=== PATIENT | female | born 1935 | race Caucasian/White ===

== ENCOUNTER 2022-05-13 10:11 | Emergency (ER) | payer MEDICARE, SELFPAY ==
--- NOTE | ~2022-05-13 | CT_ITS ---
EXAMINATION: CT cervical spine wo con DATE: 05/13/2022 11:26 INDICATION: Ground-level fall. TECHNIQUE: Computed tomography (CT) of the cervical spine was performed without intravenous contrast. Automated exposure control and iterative reconstruction technique were employed. Exam dose: 480.08 mGy-cm total exam DLP. COMPARISON: None FINDINGS: There is levoscoliosis of the cervical spine. No fracture or dislocation or locked facet. C1 and C2 are normally aligned and the odontoid process is intact. 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 There is mild to moderate degenerative disease at C3-4 and C4-5. There is minimal anterolisthesis at C4-5. There is severe degenerative disc disease at C5-6 and particularly C6-7 and C7-T1. Moderately severe degenerative disc disease and mild anterolisthesis at T1-2. There is prominent degenerative change of the apophyseal joints bilaterally, relatively sparing the l eft C5-6 apophyseal joint. There is apophyseal joint spurring, particularly at C3-4, C5-6 and C6-7. 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 Reviewed, dictated and finalized at [facility]. 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
--- NOTE | ~2022-05-13 | CT_ITS ---
EXAMINATION: CT brain wo con DATE: 05/13/2022 11:26 INDICATION: Ground-level fall. Denies striking head or loss of consciousness. TECHNIQUE: Computed tomography (CT) of the head was performed without intravenous contrast. The mA wa s adjusted according to patient size. Iterative reconstruction technique was employed. Exam dose: 60 5.33 mGy-cm total exam DLP. COMPARISON: None FINDINGS: There is left vertebral artery and bilateral carotid siphon internal carotid artery calcifi cation. Nonspecific diminished attenuation of the cerebral white matter, likely due to chronic small vessel ischemic changes. No intracranial mass lesion or hemorrhage or cerebrovascular accident is evident. No midline shift or mass effect. No subdural or epidural hematoma. Moderate cerebral volume loss. No subdural or epidura l hematoma is detected. Small fluid collection or soft tissue thickening at the posterior aspect of the right sphenoid sinus. The paranasal sinuses and mastoid air cells otherwise are normally developed and aerated. No fracture or bone destruction of the cranial vault. IMPRESSION: No skull fracture or acute intracranial finding Cerebral atherosclerosis and chronic small vessel ischemic change of the cerebral white matter Small fluid level or mild soft tissue thickening at the posterior right sphenoid sinus Reviewed, dictated and finalized at [facility]. Reviewed, dictated and finalized at [facility]. L PELLER IMPRESSION: No skull fracture or acute intracranial finding Cerebral atherosclerosis and chronic small vessel ischemic change of the cerebr al white matter Small fluid level or mild soft tissue thickening at the posterior right sphenoi d sinus
--- NOTE | ~2022-05-13 | XR_ITS ---
EXAMINATION: XR elbow RT 2V, XR humerus RT DATE: 05/13/2022 10:47 INDICATION: Pain, limited range of motion and deformity at the right upper arm and elbow TECHNIQUE: 1. Anteroposterior and lateral views of the right humerus were obtained. 2. Anteroposterior and lateral views of the right elbow were obtained. COMPARISON: None. FINDINGS: Comminuted spiral fracture of the distal right humeral diaphysis. 1 shaft width posterolateral displa cement and 30 degree medial angulation of the main distal fragment. There is an approximately 5 cm lo ng intervening butterfly fragment involving the posterior cortex. Normal alignment and relatively pre served joint space at the right elbow. The right glenohumeral joint is suboptimally profiled however there is suggestion of sclerosis and cystic change along with severe osteoarthritis at the right gonzález ral head. Mild acromion clavicular osteoarthritis. IMPRESSION: 1. Comminuted fracture of the distal right humeral diaphysis with posterolateral displacement and 30 degrees medial angulation of the main distal fragment. 2. 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 Reviewed, dictated and finalized at [facility]. 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 Comminuted fracture of the distal right humeral diaphysis with posterolatera l displacement and 30 degrees medial angulation of the main distal fragment. 2. 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
[2022-05-13 10:14] VITALS: BP 120/87; PULSE 92; RESP 15; TEMP 36.9; O2SAT 97
[2022-05-13] MEDS: MORPHINE SULFATE (*CRX) 2 MG/ML INJ IV PUSH (11:28)
--- NOTE | 2022-05-13 12:01 | ED.GENADULT ---
HPI - General Adult General Chief complaint: Fall Stated complaint: fall - arm injury Time Seen by Provider: 05/13/22 10:40 Source: patient Mode of arrival: EMS Limitations: no limitations History of Present Illness HPI narrative: Radha Uribe is an 86 y/o female who presents via EMS after a [facility] landing on her right elbow. She denies hitting her head, denies loc, denies pain anywhere other then her right elbow. Related Data Allergies Allergy/AdvReac Type Severity Reaction Status Date / Time No Known Allergies Allergy Verified 05/13/22 10:23 Review of Systems Review of Systems: CONSTITUTIONAL: Denies fever, chills, or sweats. EYES: Denies visual changes, redness, or discharge. ENT: Denies rhinorrhea, congestion, sore throat, or otalgia. CARDIOVASCULAR: Denies chest pain, palpitations, or edema. RESPIRATORY: Denies cough or dyspnea. GASTROINTESTINAL: Denies abdominal pain, nausea, vomiting, or diarrhea. GENITOURINARY: Denies dysuria or hematuria. SKIN: Denies rash or itching. MUSCULOSKELETAL: complains of pain to right elbow NEUROLOGIC: Denies headache, numbness, dizziness, or weakness. PSYCHIATRIC: Denies anxiety or depression. Exam Narrative: GENERAL: Well-appearing, well-nourished, and in no acute distress. HEAD: Normocephalic, atraumatic. EYES: PERRLA and EOMI. ENT: Nares clear, no rhinorrhea or epistaxis. Mucous membranes moist. Oropharynx without tonsillar hypertrophy exudate or other lesions. NECK: Supple. No adenopathy or masses. No carotid bruits or JVD CHEST: Clear to auscultation. No respiratory distress. No wheezes rales or rhonchi HEART: Regular rate and rhythm. No murmur heard. Normal peripheral pulses. ABDOMEN: Soft, nontender, nondistended, normal active bowel sounds. EXTREMITIES: edema/ecchymosis noted to right elbow, distal pulses present- pelvis stable no pain with palpation, SKIN: Warm, dry, no rash. NEURO: No focal deficits. Alert and oriented x3. PSYCH: Normal mood and affect. Course Vital Signs Vital signs: Vital Signs Temperature 36.9 C 05/13/22 10:14 Pulse Rate 92 05/13/22 10:14 Respiratory Rate 15 05/13/22 10:14 Blood Pressure 120/87 01/18/23 10:14 Pulse Oximetry 97 05/13/22 10:14 Oxygen Delivery Room Air 05/13/22 10:14 Temperature 36.9 C 05/13/22 10:14 Pulse Rate 92 05/13/22 10:14 Respiratory Rate 15 05/13/22 10:14 Blood Pressure 120/87 05/13/22 10:14 Pulse Oximetry 97 05/13/22 10:14 Oxygen Delivery Room Air 05/13/22 10:14 Medical Decision Making MDM Narrative Medical decision making narrative: Patient present with reports of same level mechanical fall. She fell on to her right elbow. She denies hitting her head, denies LOC, does not take any anticoagulants. Only complaint is pain to right elbow. On exam pt is alert and oriented X 4, decrease ROM and swelling noted to right elbow xray showing fracture to the distal humerus with displacement neurovascular intact plan to transfer pt for geriatric trauma, pt agrees Patient is accepted by Dr. Hernandez to [facility] for geriatric trauma Patient updated on plan of care. Differential Diagnosis Differential Diagnosis: Right humeral fracture/ Right humeral dislocation/ Vital Signs Vital Signs: Vital Signs Temperature 36.9 C 05/13/22 10:14 Pulse Rate 92 05/13/22 10:14 Respiratory Rate 15 05/13/22 10:14 Blood Pressure 120/87 05/13/22 10:14 Pulse Oximetry 97 05/13/22 10:14 Oxygen Delivery Room Air 05/13/22 10:14 Temperature 36.9 C 05/13/22 10:14 Pulse Rate 92 05/13/22 10:14 Respiratory Rate 15 05/13/22 10:14 Blood Pressure 120/87 05/13/22 10:14 Pulse Oximetry 97 05/13/22 10:14 Oxygen Delivery Room Air 05/13/22 10:14 Lab Data Lab results reviewed: Yes I reviewed the patient's lab results. Imaging Data Attestation: I personally reviewed and interpreted this imaging study as follows: My impression: ITS Impressions El
[2022-05-13 12:36] LABS: Basophils Percent Auto 0.3 % (0.2-1.2); Eosinophils Absolute Auto 0.1 K/mm3 (0-0.3); Hematocrit 39.3 % (37.0-47.0); Immature Granulocyte Absolute 0.07 K/mm3 (0.00-0.031); Immature Granulocyte Percent A 0.6 % (0-0.5); Lymphocytes Absolute Auto 1.31 K/mm3 (0.9-3.2); Lymphocytes Percent Auto 10.4 % (18.3-44.2); Mean Corpuscular HGB Conc 30.5 g/dl (32-36); Mean Corpuscular Hemoglobin 28.1 pg (26-34); Mean Platelet Volume 9.5 fl (7.4-10.4); Monocytes Absolute Auto 0.7 K/mm3 (0.1-0.6); Monocytes Percent Auto 5.7 % (2.6-8.5); Neutrophils Absolute Auto 10.3 K/mm3 (1.3-6.7); Platelet Count Result 338 k/mm3 (150-375); Red Blood Count 4.27 M/mm3 (4.2-5.4); Red Cell Distribution Width 16.1 % (11.5-14.5); White Blood Count 12.6 K/mm3 (4.5-10.0)
[2022-05-13 12:44] LABS: Partial Thromboplastin Time 40.5 SECONDS (22.3-36.8)
[2022-05-13 12:45] LABS: Alanine Aminotransferase 22 U/L (6-35); Albumin Level 4.6 g/dL (3.5-5.1); Alkaline Phosphatase 114 U/L (38-126); Anion Gap 5 mmol/L (8-16); Aspartate Amino Transferase 50 U/L (14-36); Bilirubin,Total 0.4 mg/dL (0.2-1.3); Blood Urea Nitrogen 20 mg/dL (7-17); Calcium 9.4 mg/dL (8.4-10.2); Carbon Dioxide 31 mmol/L (22-30); Chloride 100 mmol/L (98-107); Estimated CRCL calculation 67 ml/min; Estimated Glomerular Filt Rate > 60; Glucose 99 mg/dL (65-110); Potassium 4.8 mmol/L (3.4-5.0); Sodium 136 mmol/L (137-145)
[2022-05-13 13:26] VITALS: BP 129/62; PULSE 97; RESP 16; O2SAT 98
== END 2022-05-13 13:28 | disposition short-term general hospital (02) ==
PROVIDERS: Emergency Provider Nurse Practitioner Family; PCP Family Medicine
DX: S42.491A Other displaced fracture of lower end of right humerus, initial encounter for closed fracture (principal); W19.XXXA Unspecified fall, initial encounter
CPT/HCPCS: 36415; 70450; 72125; 73060; 73070; 80053; 85025; 85610; 85730; 86850; 86900; 86901; 96374; 99285; J2270